=== PATIENT | female | born 1970 | race Caucasian/White ===

== ENCOUNTER 2025-03-26 02:22 | Day surgery (SDC) | payer OTHER, SELFPAY ==
[2025-03-16 10:37] VITALS: BMI 42.0
--- OUTSIDE RECORDS SUMMARY | 2025-03-26 02:25 | XMS_ITS | Clinical Summary ---
Author Organization [facility] Address [address] [place] [address] Phone Care Team Providers [facility] Programmer Name Role Phone Unavailable Primary Care Provider Unavailabl e Allergies No known active allergies Encounters Date Type Department Care Team Description 03/23/2025 External Device Data [facility] ABSTRACTION Provider, Abstract 03/09/2025 External Device Data [facility]STRACTION Provider, Abstract 02/23/2025 External Device Data [facility]STRA[facility] Provider, Abstract 02/16/2025 External Device Data [facility]STRA[facility] Provider, Abstract 02/03/2025 External Device Data [facility]STRACTION Provider, Abstract 02/03/2025 External Device Data [facility]STRACTION Provider, Abstract 02/03/2025 External Device Data [facility]STRACTION Provider, Abstract 02/03/2025 External Device Data [facility] ABSTRACTION Provider, Abstract 02/02/2025 External Device Data [facility]STRACTION Provider, Abstract 01/06/2025 External Device Data [facility]STRACTION Provider, Abstract 01/05/2025 External Device Data [facility]STRACTION Provider, Abstract 01/05/2025 External Device Data [facility] ABSTRACTION Provider, Abstract from Last 3 Months Social History Tobacco Use Types Packs/Day Years Used Date Smoking Tobacco: Never Assessed Feeling Safe Answer Date Recorded Are you in a relationship wi th someone who hurts you emotionally and/or physically? No 07/21/2024 Comments Unknown Sex and Gender Information Value Date Recorded Sex Assigned at Not on file Legal Sex Female 11:13 PM CDT Gender Identity Not on file Sexual Orientation Not on file Last Filed Vital Signs Vital Sign Reading Time Taken Comments Blood Pressure 151/86 07/21/2024 4:45 PM INTAKE MAN Pulse 90 07/21/2024 4:45 PM [facility]TAKE MAN Temperature - - Respiratory Rate 12 07/21/2024 4:45 PM INTAKE MAN Oxygen Saturation 100% 07/21/2024 4:45 PM INTAKE MAN Inhaled Oxygen Concentration - - Weight - - Height - - Body Mass Index - - Plan of Treatment Health Maintenance Due Date Last Done Comments DTAP/TDAP/TD VACCINES (1 - Tdap) 10/19/1987 HEPATITIS B VACCINES (1 of 3 - 19+ 3-dose series) 09/21 HPV/Cotest (21-29) 1989 CERVICAL CANCER SCREENING 1998 HPV/Cotest (30-65) 1998 PAP SMEAR 1998 BREAST CANCER SCREENING 2008 COLORECTAL SCREENING 2013 Colorectal Cancer Screening 2013 FIT-DNA Q 3 years 2013 FIT/FOBT Q 1 year 2013 Flex Sig/CT Colonography Q 5 years 2013 ZOSTER VACCINE (1 of 2) 2018 INFLUENZA VACCINE (#1) 2025 Insurance
[2025-03-26 07:56] VITALS: BP 160/85; PULSE 85; RESP 20; TEMP 35.9; O2SAT 100
[2025-03-26] MEDS: LACTATED RINGERS 1,000 ML 150 ML IV CONT (08:07)
--- NOTE | 2025-03-26 08:30 | P.PNAN_ITS ---
Anes - Initial Pre Proc Eval Procedure: Operation Date: 03/26/25 09:00 Proposed Procedures p Screening Colonoscopy - Todd Mcclellan MD Date/Time: 03/26/25 08:30 Surgeon: Todd Mcclellan MD Pre Op Diagnosis: Screening Patient Data Age: 54 Gender: F Height: 1.63 m Weight: 110.7 kg Last Vital Signs Temp 35.9 C L 03/26/25 07:56 Pulse 85 03/26/25 07:56 Resp 20 03/26/25 07:56 BP 160/85 H 03/26/25 07:56 Pulse Ox 100 03/26/25 07:56 O2 Del Method Room Air 03/26/25 07:56 Allergies Allergy/AdvReac Type Severity Reaction Status Date / Time No Known Allergies Allergy Verified 03/26/25 07:55 Home Medications ?Medication ?Instructions ?Recorded ?Confirmed ?Type albuterol sulfate 90 mcg/actuation inhalation 03/16/25 History aerosol inhaler atorvastatin 40 mg tablet 40 mg PO QPM 03/16/25 History ergocalciferol (vitamin D2) 1,250 50,000 unit PO WEEKL Y 03/16/25 03/26/25 History mcg (50,000 unit) capsule lidocaine 5 % topical patch 1 patch topical Q24H PRN p ain 03/16/25 03/16/25 History omeprazole 40 mg capsule,delayed 40 mg PO DAILY 03/26/25 History release Patient hx anesthesia problems: none Family hx anesthesia problems: none Results Review: All pre-operative results and documents have been reviewed as part of the pre-operative evaluation. [facility] Past Medical History Medical History (Updated 03/25/25 @ 15:57 by Wayne Pelayo DO) GERD (gastroesophageal reflux disease) Hyperlipidemia Surgical History Surgical History (Updated 03/25/25 @ 15:57 by Wayne Pelayo DO) History of loop recorder Social History Social History Smoking packs per day: 0.5 Smoking cigarettes per day: 10.0 Years smoked: 30 Smoking pack-years: 15.00 Smoking status: Current every day smoker Tobacco type: cigarettes Additional smoking assessment comments: WAS UP TO A PACK A DAY Alcohol intake: current Substance use: current Substance use type: marijuana Other substance usage details: DAILY Living arrangements: with family Spiritual care concerns: No Anes - Eval Final PreProcedure Day of Procedure 03/26/25 08:30 Patient weight: morbidly obese Heart: regular rate and rhythm Lungs: clear to auscultation Airway: Mallampati scale class II Neurological: alert and oriented Last oral intake: >/= 8 hours ASA classification: III Emergent: no Anesthetic plan: proceed Anesthesia type and monitoring: general GIVS and standard monitoring Results Review: All pre-operative results and documents have been reviewed as part of the pre- operative evaluation. Informed Consent: The patient's anesthetic plan and its attendant risks and benefits were discussed with the patient/family/POA. Questions were solicited and answers provided to the satisfaction of the patient/family/POA.
--- NOTE | 2025-03-26 08:40 | P.HP_ITS ---
History of Present Illness History of Present Illness Consent: Risks, benefits, and alternatives have been discussed and questions answered. Patient agrees to proceed with procedure. Chief complaint: Screening Narrative: Pilar Leal is a 54 year old female here for first screening colonoscopy Review of Systems Review of Systems: All systems reviewed & are unremarkable except as noted in HPI and below [facility] Past Medical History Medical History (Updated 03/26/25 @ 08:40 by Todd Mcclellan MD) Colon cancer screening GERD (gastroesophageal reflux disease) Hyperlipidemia Surgical History Surgical History (Updated 03/25/25 @ 15:57 by Wayne Pelayo DO) History of loop recorder Social History Social History Smoking packs per day: 0.5 Smoking cigarettes per day: 10.0 Years smoked: 30 Smoking pack-years: 15.00 Smoking status: Current every day smoker Tobacco type: cigarettes Additional smoking assessment comments: WAS UP TO A PACK A DAY Alcohol intake: current Substance use: current Substance use type: marijuana Other substance usage details: DAILY Living arrangements: with family Spiritual care concerns: No Meds Home Medications and Allergies Home Medications ?Medication ?Instructions ?Recorded ?Confirmed ?Type albuterol sulfate 90 mcg/actuation inhalation 03/16/25 History aerosol inhaler atorvastatin 40 mg tablet 40 mg PO QPM 03/16/25 History ergocalciferol (vitamin D2) 1,250 50,000 unit PO WEEKL Y 03/16/25 03/26/25 History mcg (50,000 unit) capsule lidocaine 5 % topical patch 1 patch topical Q24H PRN p ain 03/16/25 03/16/25 History omeprazole 40 mg capsule,delayed 40 mg PO DAILY 03/26/25 History release Allergies Allergy/AdvReac Type Severity Reaction Status Date / Time No Known Allergies Allergy Verified 03/26/25 07:55 Vital Signs Vital Signs - 24 hr 03/26/25 07:56 Temperature 96.7 F L Pulse Rate 85 Respiratory Rate 20 Blood Pressure 160/85 H Pulse Oximetry 100 Oxygen Delivery Room Air Exam Const: General: comfortable and no acute distress HENMT: Face/Nose/Sinus: Normal nares present Eyes: General: appearance normal, both eyes and all related structures Neck: Neck: no JVD Resp: Auscultation: clear to auscultation bilaterally Cardio: Rate: regular rate Rhythm: regular rhythm GI: Inspection: non-distended GI Palp: Yes Soft to palpation Skin: General skin exam: normal color Neuro: Speech: normal speech Extrem: General: normal to inspection Psych: Mental Status: mental status grossly normal Assessment and Plan Assessment and plan (1) Colon cancer screening: Code(s): Z12.11 - Encounter for screening for malignant neoplasm of colon Status: Acute Assessment and Plan: colonoscopy
[2025-03-26 09:00] VITALS: BP 105/66; PULSE 81; RESP 20; O2SAT 98
--- NOTE | 2025-03-26 09:00 | S_PTH ---
PATIENT: Pilar Leal LOC: [facility]#:[id number] AGE/SX: 54/F ROOM: RE03/26/[address]: Todd Mcclellan MD : 1970 BED: DIS: 03/26/2025 SPEC #: [id number] RECD: 03/26/25 09:42 STATUS: GILLIAN REPepe #: [id number] MICKIE: 03/26/25 09:[address]: Todd Mcclellan DEPT: [facility] Surgical RECD BY: Danya Hernandes ENTERED: 03/26/25 09:42 SP TYPE: Surgical OTHR DR: Will GloriaMD Tissues: A - Colon Polypectomy B - Colon Polypectomy C - Colon Polypectomy Procedures: Hematoxylin and Eosin Stain Gross and Microscopic Level 4
[2025-03-26 09:10] VITALS: BP 140/70; PULSE 77; RESP 23; O2SAT 98
[2025-03-26 09:20] VITALS: BP 155/79; PULSE 70; RESP 17; O2SAT 100
== END 2025-03-26 09:32 | disposition home or self-care (01) ==
PROVIDERS: PCP Internal Medicine; Referring Provider Internal Medicine; Visit Provider Internal Medicine Gastroenterology
PROC: 0DJD8ZZ Inspection of Lower Intestinal Tract, Via Natural or Artificial Opening Endoscopic (ICD-10-PCS; CPT 45378; principal; 2025-03-26 09:00)
DX: Z12.11 Encounter for screening for malignant neoplasm of colon (principal); D12.0 Benign neoplasm of cecum; D12.3 Benign neoplasm of transverse colon; D12.5 Benign neoplasm of sigmoid colon; K57.30 Diverticulosis of large intestine without perforation or abscess without bleeding; F17.210 Nicotine dependence, cigarettes, uncomplicated; F12.90 Cannabis use, unspecified, uncomplicated; E66.01 Morbid (severe) obesity due to excess calories; Z68.41 Body mass index [BMI] 40.0-44.9, adult
CPT/HCPCS: 45380; 45385; 88305; J2704; J7120